=== PATIENT | male | born 2005 | race Caucasian/White ===

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

== ENCOUNTER 2025-03-15 09:25 | Emergency (ER) | payer OTHER ==
[~2025-03-15] VITALS: Ht 177.8 cm; Wt 86.2 kg
[2025-03-15] MEDS ORDERED: BENZOCAINE 20% 11.9 GM GEL T STA (12:09)
[2025-03-15] MEDS ORDERED: Lidocaine Hydrochloride 15 ML UDC PO STA (12:09)
[2025-03-15] MEDS ORDERED: PENICILLIN V POTASSIUM 500 MG TAB PO ONE (12:10)
[2025-03-15] MEDS ORDERED: BUPIVACAINE 0.5% 30 ML SINGLE DOSE VIAL SC ONE (12:10)
[2025-03-15] MEDS ORDERED: Lidocaine Hydrochloride 2 ML AMP SC ONE (12:10)
[2025-03-15] MEDS ORDERED: BUPivacaine 0.5% 10 ML VIAL SC ONE (12:15)
[2025-03-15] MEDS ORDERED: Ketorolac Tromethamine 60 MG/2 ML VIAL IM ONE (12:50)
[2025-03-15] MEDS ORDERED: Motrin,Rufen800 MG PO (13:46)
[2025-03-15] MEDS ORDERED: PENICILLIN-VK500 MG PO (13:46)
== END 2025-03-15 13:57 | disposition home or self-care (01) ==
LOC: ED 09:25
DX: K04.7 Periapical abscess without sinus (principal); R22.0 Localized swelling, mass and lump, head; F17.210 Nicotine dependence, cigarettes, uncomplicated

== ENCOUNTER → 2025-04-13 | Outpatient (CLI) | payer OTHER ==
[~2025-04-13] MED LIST changes: +Motrin,Rufen800 MG PO; +PENICILLIN-VK500 MG PO
== END | disposition home or self-care (01) ==
LOC: LAB 16:35
PROVIDERS: ATTEND Nurse Practitioner Family
DX: R30.0 Dysuria (principal); Z72.51 High risk heterosexual behavior

== ENCOUNTER 2025-06-07 12:19 | Emergency (ER) | payer OTHER ==
[~2025-06-07] VITALS: Ht 177.8 cm; Wt 83.9 kg
[2025-06-07] MEDS ORDERED: IBU800 MG PO (13:01)
[2025-06-07] MEDS ORDERED: IBUPROFEN 800 MG TAB PO ONE (13:05)
== END 2025-06-07 13:13 | disposition home or self-care (01) ==
LOC: ED 12:19
DX: M25.571 Pain in right ankle and joints of right foot (principal)

== ENCOUNTER → 2025-06-17 | Outpatient (CLI) | payer OTHER ==
[~2025-06-17] MED LIST changes: +IBU800 MG PO
== END ==
LOC: ORTHO 06-16 14:00
PROVIDERS: ATTEND Orthopaedic Surgery
DX: M79.672 Pain in left foot (principal)

== ENCOUNTER 2025-08-25 14:41 | Emergency (ER) | payer OTHER ==
[2025-08-25] MEDS ORDERED: hydrOXYzine hydrochloride 50 MG/ML VIAL IM ONE (15:40)
[2025-08-25 15:50] LABS: BASO # 0.0 10*3/uL (0.0-0.1); BASO % 0.3 % (0.0-1.0); EOS # 0.1 10*3/uL (0.0-0.4); EOS % 0.8 % (1.0-4.0); MEAN CELL VOLUME 88.3 fl (80.0-94.0); MEAN CORPUSCULAR HGB 30.6 pg (27.0-31.0); MEAN PLATELET VOLUME 10.9 fl (9.6-12.3); MONO # 0.4 10*3/uL (0.1-1.0); MONO % 5.8 % (3.0-9.0); NEUT # 5.5 10*3/uL (2.3-7.9); NEUT % 72.2 % (47.0-73.0); NUCLEATED RED BLOOD CELL 0.0 % (0.0-0.0); NUCLEATED RED BLOOD CELL 0.0 10*3/uL (0.0-0.0); PLATELET COUNT AUTOMATED 224 10*3/uL (130-400); RED CELL DISTRI WIDTH 11.9 % (0-14.5)
[2025-08-25 16:14] LABS: BUN 10 mg/dl (9-23)
[2025-08-25 16:34] LABS: SGPT/ALT < 7 U/L (5-49)
[2025-08-25 16:50] LABS: BILIRUBIN Negative (Negative); BLOOD Negative (Negative); CLARITY Clear (Clear); COLOR Yellow (Yellow); KETONE 1+ (Negative); LEUKO ESTERASE Negative (Negative); NITRITE Negative (Negative); SPECIFIC GRAVITY 1.015 (1.001-1.030); UROBILINOGEN 1.0 E.U./dl (0.0-1.0)
[2025-08-25 17:03] LABS: URINE AMPHETAMINES Negative (1000ng/ml); URINE BARBITURATES Negative (200ng/ml); URINE BENZODIAZEPINES Negative (200ng/ml); URINE CANNABINOIDS (THC) Positive (50ng/ml); URINE COCAINE Negative (300ng/ml); URINE METHADONE Negative (300ng/ml); URINE OPIATES Negative (300ng/ml); URINE PHENCYCLIDINE Negative (25ng/ml)
[2025-08-25 17:33] LABS: PH 8.5 (4.5-8.0)
[2025-08-25 17:35] LABS: BACTERIA TRACE; MUCOUS 1+
== END 2025-08-25 20:09 | disposition short-term general hospital (02) ==
LOC: ED 14:41
PROVIDERS: Nurse Practitioner Family
DX: F29 Unspecified psychosis not due to a substance or known physiological condition (principal); F41.9 Anxiety disorder, unspecified

== ENCOUNTER → 2025-09-15 | Outpatient (CLI) | payer OTHER ==
[2025-09-15 11:07] LABS: BUN 19 mg/dl (9-23); SGPT/ALT 12 U/L (5-49)
== END | disposition home or self-care (01) ==
LOC: LAB 10:10
PROVIDERS: Student in an Organized Health Care Education/Training Program; ATTEND Internal Medicine Endocrinology, Diabetes & Metabolism
DX: E05.90 Thyrotoxicosis, unspecified without thyrotoxic crisis or storm (principal); E83.52 Hypercalcemia

== ENCOUNTER 2025-09-19 14:09 | Emergency (ER) | payer OTHER ==
[~2025-09-19] VITALS: Ht 177.8 cm; Wt 80.5 kg
[2025-09-19 15:01] LABS: BASO # 0.0 10*3/uL (0.0-0.1); BASO % 0.6 % (0.0-1.0); EOS # 0.5 10*3/uL (0.0-0.4); EOS % 7.2 % (1.0-4.0); MEAN CELL VOLUME 89.5 fl (80.0-94.0); MEAN CORPUSCULAR HGB 30.3 pg (27.0-31.0); MEAN PLATELET VOLUME 10.4 fl (9.6-12.3); MONO # 0.4 10*3/uL (0.1-1.0); MONO % 5.9 % (3.0-9.0); NEUT # 4.1 10*3/uL (2.3-7.9); NEUT % 59.9 % (47.0-73.0); NUCLEATED RED BLOOD CELL 0.0 % (0.0-0.0); NUCLEATED RED BLOOD CELL 0.0 10*3/uL (0.0-0.0); PLATELET COUNT AUTOMATED 220 10*3/uL (130-400); RED CELL DISTRI WIDTH 12.2 % (0-14.5)
[2025-09-19 15:14] LABS: BILIRUBIN Negative (Negative); BLOOD Negative (Negative); CLARITY Clear (Clear); COLOR Yellow (Yellow); KETONE 1+ (Negative); LEUKO ESTERASE Negative (Negative); NITRITE Negative (Negative); PH 6.5 (4.5-8.0); SPECIFIC GRAVITY 1.015 (1.001-1.030); UROBILINOGEN 1.0 E.U./dl (0.0-1.0)
[2025-09-19 15:22] LABS: URINE AMPHETAMINES Negative (1000ng/ml); URINE BARBITURATES Negative (200ng/ml); URINE BENZODIAZEPINES Negative (200ng/ml); URINE CANNABINOIDS (THC) Positive (50ng/ml); URINE COCAINE Negative (300ng/ml); URINE METHADONE Negative (300ng/ml); URINE OPIATES Negative (300ng/ml); URINE PHENCYCLIDINE Negative (25ng/ml)
[2025-09-19 15:23] LABS: BUN 9 mg/dl (9-23); CPK 72 U/L (34-171); SGPT/ALT 11 U/L (5-49)
[2025-09-19 15:32] LABS: ETHYL ALCOHOL < 3.0 mg/dl (<3)
[2025-09-19 15:34] LABS: BACTERIA 1+; EPITHELIAL CELLS 0-2; MUCOUS TRACE; RBC 0-2 rbc/hpf (0-2); WBC 0-2 wbc/hpf (0-5)
== END 2025-09-19 18:22 | disposition home or self-care (01) ==
LOC: ED 14:09
PROVIDERS: Internal Medicine
DX: F43.20 Adjustment disorder, unspecified (principal)